=== PATIENT | female | born 1955 | race Caucasian/White ===

== ENCOUNTER 2017-03-03 17:04 | Inpatient (IN) | payer MEDICARE, OTHER ==
[~2017-03-03] VITALS: Ht 165.1 cm; Wt 89.4 kg
[2017-03-03] MEDS ORDERED: METFORMIN HCL PO (17:18)
[2017-03-03] MEDS ORDERED: LORAZEPAM PO (17:18)
[2017-03-03] MEDS ORDERED: QUET25TA3 PO (17:43)
[2017-03-03] MEDS ORDERED: MAGNESIUM HYDROXIDE 30 ML LIQUID UDC PO PRN (18:00)
[2017-03-03 18:31] VITALS: BP 127/87
[2017-03-03 20:13] VITALS: BP 134/77
[2017-03-03] MEDS: MAG HYDROX/AL HYDROX/SIMETH 30 ML LIQUID UDC PO PRN (20:30)
[2017-03-03] MEDS: ACETAMINOPHEN 325 MG TABLET PO PRN ×2 (20:32→20:47)
[2017-03-03] MEDS: LORAZEPAM 0.5 MG TABLET PO PRN ×2 (20:33→20:46)
[2017-03-03] MEDS: NICOTINE 14 MG/24HR PATCH TD SCH (21:02)
[2017-03-03] MEDS ORDERED: NICOTINE 14 MG/24HR PATCH TD ONE (21:10)
[2017-03-03] MEDS: QUETIAPINE FUMARATE 200 MG TABLET PO SCH (22:10)
[2017-03-03] MEDS ORDERED: QUETIAPINE FUMARATE 200 MG TABLET ONE (22:15)
[2017-03-04 07:30] VITALS: BP 115/77
[2017-03-04] MEDS: NICOTINE 14 MG/24HR PATCH TD SCH (09:21)
[2017-03-04] MEDS: ACETAMINOPHEN 325 MG TABLET PO PRN (10:52)
[2017-03-04] MEDS: MAG HYDROX/AL HYDROX/SIMETH 30 ML LIQUID UDC PO PRN (12:41)
[2017-03-04] MEDS: LORAZEPAM 0.5 MG TABLET PO PRN (16:04)
[2017-03-04 16:50] VITALS: BP 114/76
[2017-03-04] MEDS: CARBAMAZEPINE 200 MG TABLET PO SCH (19:14)
[2017-03-04] MEDS ORDERED: DEXTROSE 50% 50 ML DISP.SYRIN IV PRN (19:15)
[2017-03-04] MEDS ORDERED: INSULIN REGULAR, HUMAN 300 UNIT/3 ML VIAL SQ PRN (19:15)
[2017-03-04] MEDS: BLOOD SUGAR DIAGNOSTIC 1 EACH STRIP VI SCH (20:15)
[2017-03-04] MEDS: QUETIAPINE FUMARATE 200 MG TABLET PO SCH (20:16)
[2017-03-04 20:55] VITALS: BP 115/70
[2017-03-05] MEDS: ACETAMINOPHEN 325 MG TABLET PO PRN (01:55)
[2017-03-05] MEDS: LORAZEPAM 0.5 MG TABLET PO PRN (01:56)
[2017-03-05] MEDS: BLOOD SUGAR DIAGNOSTIC 1 EACH STRIP VI SCH ×4 (06:34→20:10)
[2017-03-05 07:30] VITALS: BP 102/75
[2017-03-05] MEDS: NICOTINE 14 MG/24HR PATCH TD SCH (09:13)
[2017-03-05] MEDS: METFORMIN HCL 500 MG TABLET PO SCH ×2 (09:13→17:52)
[2017-03-05] MEDS: CARBAMAZEPINE 200 MG TABLET PO SCH ×3 (09:13→17:52)
[2017-03-05 12:51] LABS: BASOPHILS % (AUTO) 0.6 % (0.0-2.0); EOSINOPHILS # (AUTO) 0.1 K/uL (0.0-0.7); EOSINOPHILS % (AUTO) 1.6 % (0.0-7.0); HEMATOCRIT 35.3 % (31.2-41.9); HEMOGLOBIN 11.6 g/dL (10.9-14.3); LYMPHOCYTES # (AUTO) 1.6 K/uL (20.0-40.0); MEAN CORPUSCULAR HEMOGLOBIN 25.6 uug (24.7-32.8); MEAN CORPUSCULAR HGB CONC 33 g/dL (32.3-35.6); MONOCYTES # (AUTO) 0.3 K/uL (2.0-10.0); MONOCYTES % (AUTO) 8.1 % (0.0-11.0); NEUTROPHILS # (AUTO) 1.5 K/uL (1.8-8.9); NEUTROPHILS % (AUTO) 42.7 % (38.5-71.5); PLATELET COUNT (AUTO) 247 K/uL (179-408); RED BLOOD CELL COUNT(AUTO) 4.52 MIL/uL (3.63-4.92); WHITE BLOOD COUNT (AUTO) 3.5 K/uL (3.8-11.8)
[2017-03-05 13:21] LABS: BILIRUBIN,TOTAL 0.2 mg/dL (0.2-1.0); CREATININE 0.8 mg/dL (0.6-1.3); PHOSPHOROUS 3.6 mg/dL (2.5-4.9); POTASSIUM 3.9 mmol/L (3.5-5.1); TOTAL PROTEIN, SERUM 7.8 g/dL (6.4-8.2)
[2017-03-05 13:32] LABS: THYROID STIMULATING HORMONE 0.654 mIU/mL (0.358-3.740)
[2017-03-05 16:31] VITALS: BP 117/79
[2017-03-05 20:07] VITALS: BP 127/80
[2017-03-05] MEDS: QUETIAPINE FUMARATE 200 MG TABLET PO SCH (20:09)
[2017-03-06] MEDS: BLOOD SUGAR DIAGNOSTIC 1 EACH STRIP VI SCH ×2 (06:25→11:57)
[2017-03-06 08:00] VITALS: BP 112/81
[2017-03-06] MEDS: METFORMIN HCL 500 MG TABLET PO SCH ×2 (08:27→17:15)
[2017-03-06] MEDS: CARBAMAZEPINE 200 MG TABLET PO SCH ×3 (08:27→17:15)
[2017-03-06] MEDS: NICOTINE 14 MG/24HR PATCH TD SCH (08:27)
[2017-03-06 10:12] LABS: BILIRUBIN,TOTAL 0.2 mg/dL (0.2-1.0); CREATININE 0.8 mg/dL (0.6-1.3); MAGNESIUM 1.8 mg/dL (1.8-2.4); PHOSPHOROUS 3.5 mg/dL (2.5-4.9); POTASSIUM 4.1 mmol/L (3.5-5.1); TOTAL PROTEIN, SERUM 7.7 g/dL (6.4-8.2)
[2017-03-06 10:21] LABS: BASOPHILS % (AUTO) 0.6 % (0.0-2.0); EOSINOPHILS # (AUTO) 0.1 K/uL (0.0-0.7); EOSINOPHILS % (AUTO) 1.6 % (0.0-7.0); HEMATOCRIT 36.5 % (31.2-41.9); HEMOGLOBIN 11.9 g/dL (10.9-14.3); LYMPHOCYTES # (AUTO) 2.4 K/uL (20.0-40.0); LYMPHOCYTES % (AUTO) 57.6 % (20.5-51.5); MEAN CORPUSCULAR HEMOGLOBIN 25.8 uug (24.7-32.8); MEAN CORPUSCULAR HGB CONC 33 g/dL (32.3-35.6); MEAN CORPUSCULAR VOLUME 78.8 fL (75.5-95.3); MONOCYTES # (AUTO) 0.3 K/uL (2.0-10.0); MONOCYTES % (AUTO) 7.5 % (0.0-11.0); NEUTROPHILS # (AUTO) 1.4 K/uL (1.8-8.9); NEUTROPHILS % (AUTO) 32.7 % (38.5-71.5); PLATELET COUNT (AUTO) 259 K/uL (179-408); RED BLOOD CELL COUNT(AUTO) 4.62 MIL/uL (3.63-4.92); WHITE BLOOD COUNT (AUTO) 4.2 K/uL (3.8-11.8)
[2017-03-06 12:22] LABS: THYROID STIMULATING HORMONE 0.85 mIU/mL (0.358-3.740)
[2017-03-06] MEDS ORDERED: BISACODYL 5 MG TABLET.DR PO PRN (14:30)
[2017-03-06] MEDS ORDERED: BISACODYL 5 MG TABLET.DR PO ONE (14:30)
[2017-03-06] MEDS: DOCUSATE SODIUM 100 MG CAPSULE PO SCH ×2 (15:54→20:23)
[2017-03-06 16:00] VITALS: BP 143/89
[2017-03-06] MEDS: ATORVASTATIN 10 MG TABLET PO SCH (20:23)
[2017-03-06] MEDS: QUETIAPINE FUMARATE 200 MG TABLET PO SCH (20:23)
[2017-03-06 20:27] VITALS: BP 126/83
[2017-03-06 22:42] LABS: *OCCULT BLOOD STOOL NEGATIVE (NEGATIVE)
[2017-03-07] MEDS: diphenhydrAMINE/ZINC ACET CREAM 28 GM TUBE TOP PRN (00:17)
[2017-03-07] MEDS: BLOOD SUGAR DIAGNOSTIC 1 EACH STRIP VI SCH (05:21)
[2017-03-07] MEDS: ACETAMINOPHEN 325 MG TABLET PO PRN (05:21)
[2017-03-07 07:30] VITALS: BP 124/78
[2017-03-07] MEDS: LORAZEPAM 0.5 MG TABLET PO PRN ×2 (08:19→15:38)
[2017-03-07] MEDS: METFORMIN HCL 500 MG TABLET PO SCH ×2 (08:19→17:05)
[2017-03-07] MEDS: CARBAMAZEPINE 200 MG TABLET PO SCH ×3 (08:19→17:00)
[2017-03-07] MEDS: DOCUSATE SODIUM 100 MG CAPSULE PO SCH ×2 (08:19→20:28)
[2017-03-07] MEDS: NICOTINE 14 MG/24HR PATCH TD SCH (08:20)
[2017-03-07 15:00] VITALS: BP 134/78
[2017-03-07] MEDS: MAG HYDROX/AL HYDROX/SIMETH 30 ML LIQUID UDC PO PRN (15:38)
[2017-03-07] MEDS: QUETIAPINE FUMARATE 200 MG TABLET PO SCH (20:28)
[2017-03-07] MEDS: ATORVASTATIN 10 MG TABLET PO SCH (20:28)
[2017-03-07 21:14] VITALS: BP 160/95
[2017-03-07 22:00] VITALS: BP 148/88
[2017-03-08] MEDS: BLOOD SUGAR DIAGNOSTIC 1 EACH STRIP VI SCH (06:25)
[2017-03-08 07:30] VITALS: BP 118/88
[2017-03-08] MEDS: METFORMIN HCL 500 MG TABLET PO SCH ×2 (08:38→17:38)
[2017-03-08] MEDS: DOCUSATE SODIUM 100 MG CAPSULE PO SCH ×2 (08:38→20:38)
[2017-03-08] MEDS: NICOTINE 14 MG/24HR PATCH TD SCH (08:38)
[2017-03-08] MEDS: LORAZEPAM 0.5 MG TABLET PO PRN (11:07)
[2017-03-08] MEDS: ACETAMINOPHEN 325 MG TABLET PO PRN (12:24)
[2017-03-08] MEDS: MAG HYDROX/AL HYDROX/SIMETH 30 ML LIQUID UDC PO PRN ×2 (15:04→17:09)
[2017-03-08] MEDS: QUETIAPINE FUMARATE 200 MG TABLET PO SCH (20:37)
[2017-03-08] MEDS: CARBAMAZEPINE 200 MG TABLET PO SCH (20:38)
[2017-03-08] MEDS: ATORVASTATIN 10 MG TABLET PO SCH (20:38)
[2017-03-08 20:42] VITALS: BP 129/83
[2017-03-08] MEDS: TEMAZEPAM 7.5 MG CAPSULE PO PRN (23:51)
[2017-03-09] MEDS: MAG HYDROX/AL HYDROX/SIMETH 30 ML LIQUID UDC PO PRN ×2 (03:10→16:04)
[2017-03-09] MEDS: ACETAMINOPHEN 325 MG TABLET PO PRN ×2 (05:33→11:25)
[2017-03-09] MEDS: BLOOD SUGAR DIAGNOSTIC 1 EACH STRIP VI SCH (06:09)
[2017-03-09 07:30] VITALS: BP 108/79
[2017-03-09] MEDS: NICOTINE 14 MG/24HR PATCH TD SCH (08:10)
[2017-03-09] MEDS: CARBAMAZEPINE 200 MG TABLET PO SCH ×2 (08:10→20:28)
[2017-03-09] MEDS: METFORMIN HCL 500 MG TABLET PO SCH ×2 (08:10→17:01)
[2017-03-09] MEDS: DOCUSATE SODIUM 100 MG CAPSULE PO SCH ×2 (08:10→20:27)
[2017-03-09] MEDS: LORAZEPAM 0.5 MG TABLET PO PRN ×2 (10:49→16:00)
[2017-03-09 16:46] VITALS: BP 115/80
[2017-03-09 20:20] VITALS: BP 124/74
[2017-03-09] MEDS: QUETIAPINE FUMARATE 200 MG TABLET PO SCH (20:27)
[2017-03-09] MEDS: ATORVASTATIN 10 MG TABLET PO SCH (20:28)
[2017-03-09] MEDS ORDERED: LOPERAMIDE HCL 2 MG CAPSULE PO PRN (20:30)
[2017-03-09] MEDS: diphenhydrAMINE/ZINC ACET CREAM 28 GM TUBE TOP PRN (20:34)
[2017-03-09] MEDS ORDERED: LOPERAMIDE HCL 2 MG CAPSULE ONE (20:50)
[2017-03-10] MEDS: TEMAZEPAM 7.5 MG CAPSULE PO PRN ×2 (00:35→23:40)
[2017-03-10] MEDS: BLOOD SUGAR DIAGNOSTIC 1 EACH STRIP VI SCH (06:23)
[2017-03-10 07:30] VITALS: BP 121/76
[2017-03-10 07:36] LABS: BASOPHILS % (AUTO) 0.6 % (0.0-2.0); EOSINOPHILS # (AUTO) 0.1 K/uL (0.0-0.7); EOSINOPHILS % (AUTO) 1.5 % (0.0-7.0); HEMOGLOBIN 12.4 g/dL (10.9-14.3); LYMPHOCYTES # (AUTO) 2.8 K/uL (20.0-40.0); LYMPHOCYTES % (AUTO) 55.8 % (20.5-51.5); MEAN CORPUSCULAR HEMOGLOBIN 25.7 uug (24.7-32.8); MEAN CORPUSCULAR HGB CONC 33 g/dL (32.3-35.6); MEAN CORPUSCULAR VOLUME 78.7 fL (75.5-95.3); MONOCYTES # (AUTO) 0.4 K/uL (2.0-10.0); MONOCYTES % (AUTO) 8.3 % (0.0-11.0); NEUTROPHILS # (AUTO) 1.7 K/uL (1.8-8.9); NEUTROPHILS % (AUTO) 33.8 % (38.5-71.5); PLATELET COUNT (AUTO) 267 K/uL (179-408); RED BLOOD CELL COUNT(AUTO) 4.82 MIL/uL (3.63-4.92)
[2017-03-10 08:05] LABS: BILIRUBIN,TOTAL 0.1 mg/dL (0.2-1.0); CREATININE 0.7 mg/dL (0.6-1.3); MAGNESIUM 1.7 mg/dL (1.8-2.4); PHOSPHOROUS 4.5 mg/dL (2.5-4.9); POTASSIUM 4.4 mmol/L (3.5-5.1); TOTAL PROTEIN, SERUM 7.7 g/dL (6.4-8.2)
[2017-03-10] MEDS: CARBAMAZEPINE 200 MG TABLET PO SCH ×2 (08:18→20:49)
[2017-03-10] MEDS: METFORMIN HCL 500 MG TABLET PO SCH ×2 (08:18→17:17)
[2017-03-10] MEDS: DOCUSATE SODIUM 100 MG CAPSULE PO SCH ×2 (08:18→21:00)
[2017-03-10] MEDS: NICOTINE 14 MG/24HR PATCH TD SCH (08:18)
[2017-03-10] MEDS: ACETAMINOPHEN 325 MG TABLET PO PRN (08:37)
[2017-03-10] MEDS: LORAZEPAM 0.5 MG TABLET PO PRN (12:06)
[2017-03-10] MEDS ORDERED: MAGNESIUM OXIDE 400 MG TABLET PO ONE (14:00)
[2017-03-10 16:13] VITALS: BP 120/86
[2017-03-10 20:00] VITALS: BP 138/87
[2017-03-10] MEDS: ATORVASTATIN 10 MG TABLET PO SCH (20:49)
[2017-03-10] MEDS: QUETIAPINE FUMARATE 200 MG TABLET PO SCH (20:49)
[2017-03-11] MEDS: BLOOD SUGAR DIAGNOSTIC 1 EACH STRIP VI SCH (06:41)
[2017-03-11 07:30] VITALS: BP 123/78
[2017-03-11] MEDS: METFORMIN HCL 500 MG TABLET PO SCH ×2 (08:17→17:01)
[2017-03-11] MEDS: CARBAMAZEPINE 200 MG TABLET PO SCH ×2 (08:17→20:31)
[2017-03-11] MEDS: DOCUSATE SODIUM 100 MG CAPSULE PO SCH (08:18)
[2017-03-11] MEDS: NICOTINE 14 MG/24HR PATCH TD SCH (08:18)
[2017-03-11] MEDS: ACETAMINOPHEN 325 MG TABLET PO PRN (08:18)
[2017-03-11] MEDS: LORAZEPAM 0.5 MG TABLET PO PRN (11:55)
[2017-03-11] MEDS: MAG HYDROX/AL HYDROX/SIMETH 30 ML LIQUID UDC PO PRN (15:00)
[2017-03-11 16:58] VITALS: BP 122/79
[2017-03-11] MEDS: ATORVASTATIN 10 MG TABLET PO SCH (20:31)
[2017-03-11] MEDS: QUETIAPINE FUMARATE 200 MG TABLET PO SCH (20:31)
[2017-03-11] MEDS ORDERED: CARBAMAZEPINE 200 MG TABLET ONE (20:56)
[2017-03-12] MEDS: MAG HYDROX/AL HYDROX/SIMETH 30 ML LIQUID UDC PO PRN ×3 (01:40→18:15)
[2017-03-12] MEDS: TEMAZEPAM 7.5 MG CAPSULE PO PRN (01:55)
[2017-03-12 07:30] VITALS: BP 113/80
[2017-03-12] MEDS: BENZTROPINE MESYLATE 1 MG TABLET PO SCH ×2 (08:45→17:37)
[2017-03-12] MEDS: NICOTINE 14 MG/24HR PATCH TD SCH (08:45)
[2017-03-12] MEDS: CARBAMAZEPINE 200 MG TABLET PO SCH ×3 (08:45→17:37)
[2017-03-12] MEDS: METFORMIN HCL 500 MG TABLET PO SCH ×2 (08:45→17:36)
[2017-03-12] MEDS ORDERED: BENZTROPINE MESYLATE 0.5 MG TABLET PO SCH (09:00)
[2017-03-12 13:00] VITALS: BP 127/83
[2017-03-12] MEDS: ATORVASTATIN 10 MG TABLET PO SCH (20:45)
[2017-03-12] MEDS: QUETIAPINE FUMARATE 200 MG TABLET PO SCH (20:45)
[2017-03-12 20:53] VITALS: BP 114/72
[2017-03-13] MEDS: TEMAZEPAM 7.5 MG CAPSULE PO PRN (00:40)
[2017-03-13 08:00] VITALS: BP 137/92
[2017-03-13] MEDS: METFORMIN HCL 500 MG TABLET PO SCH ×2 (08:23→17:11)
[2017-03-13] MEDS: CARBAMAZEPINE 200 MG TABLET PO SCH ×3 (08:23→16:34)
[2017-03-13] MEDS: NICOTINE 14 MG/24HR PATCH TD SCH (08:24)
[2017-03-13] MEDS: BENZTROPINE MESYLATE 1 MG TABLET PO SCH ×2 (08:24→16:34)
[2017-03-13 16:00] VITALS: BP 133/85
[2017-03-13] MEDS: ACETAMINOPHEN 325 MG TABLET PO PRN (16:34)
[2017-03-13] MEDS: LORAZEPAM 0.5 MG TABLET PO PRN (16:41)
[2017-03-13 20:18] VITALS: BP 124/80
[2017-03-13] MEDS: ATORVASTATIN 10 MG TABLET PO SCH (20:34)
[2017-03-13] MEDS: QUETIAPINE FUMARATE 200 MG TABLET PO SCH (20:35)
[2017-03-13] MEDS ORDERED: diphenhydrAMINE 25 MG/10 ML UDC NG PRN (22:00)
[2017-03-14 07:30] VITALS: BP 109/61
[2017-03-14] MEDS: METFORMIN HCL 500 MG TABLET PO SCH ×2 (08:42→17:02)
[2017-03-14] MEDS: BENZTROPINE MESYLATE 1 MG TABLET PO SCH ×2 (08:42→16:35)
[2017-03-14] MEDS: CARBAMAZEPINE 200 MG TABLET PO SCH ×3 (08:43→16:35)
[2017-03-14] MEDS: NICOTINE 14 MG/24HR PATCH TD SCH (08:43)
[2017-03-14] MEDS: LISINOPRIL 5 MG TABLET PO SCH (08:44)
[2017-03-14] MEDS: diphenhydrAMINE/ZINC ACET CREAM 28 GM TUBE TOP PRN (09:11)
[2017-03-14 15:00] VITALS: BP 114/82
[2017-03-14] MEDS: LORAZEPAM 0.5 MG TABLET PO PRN (15:51)
[2017-03-14 20:00] VITALS: BP 116/73
[2017-03-14] MEDS: QUETIAPINE FUMARATE 200 MG TABLET PO SCH (20:34)
[2017-03-14] MEDS: ATORVASTATIN 10 MG TABLET PO SCH (20:34)
[2017-03-15] MEDS: TEMAZEPAM 7.5 MG CAPSULE PO PRN (00:43)
[2017-03-15] MEDS: MAG HYDROX/AL HYDROX/SIMETH 30 ML LIQUID UDC PO PRN (04:10)
[2017-03-15] MEDS: METFORMIN HCL 500 MG TABLET PO SCH (08:11)
[2017-03-15 08:12] VITALS: BP 133/79
[2017-03-15] MEDS: LISINOPRIL 5 MG TABLET PO SCH (08:12)
[2017-03-15] MEDS: BENZTROPINE MESYLATE 1 MG TABLET PO SCH (08:12)
[2017-03-15] MEDS: NICOTINE 14 MG/24HR PATCH TD SCH (08:12)
[2017-03-15] MEDS: CARBAMAZEPINE 200 MG TABLET PO SCH ×2 (08:12→11:38)
== END 2017-03-15 12:00 | disposition home or self-care (01) | DRG 885 ==
LOC: ER 17:09 → GPS 17:40
PROVIDERS: ADMIT Psychiatry & Neurology Psychiatry
DX: F31.2 Bipolar disorder, current episode manic severe with psychotic features (principal); E11.65 Type 2 diabetes mellitus with hyperglycemia; E11.40 Type 2 diabetes mellitus with diabetic neuropathy, unspecified; F03.90 Unspecified dementia, unspecified severity, without behavioral disturbance, psychotic disturbance, mood disturbance, and anxiety; Z87.828 Personal history of other (healed) physical injury and trauma; Z91.5 Personal history of self-harm; E66.9 Obesity, unspecified; Z68.32 Body mass index [BMI] 32.0-32.9, adult; Z59.0 Homelessness; F20.9 Schizophrenia, unspecified; K59.00 Constipation, unspecified; E88.09 Other disorders of plasma-protein metabolism, not elsewhere classified; Z87.891 Personal history of nicotine dependence; E83.42 Hypomagnesemia; E78.5 Hyperlipidemia, unspecified; D72.819 Decreased white blood cell count, unspecified
CPT/HCPCS: 36415; 83735; 84100; 84443; 85025; A4663; J1815

== ENCOUNTER 2017-09-26 04:39 | Inpatient (IN) | payer MEDICARE ==
[~2017-09-26] VITALS: Ht 165.1 cm; Wt 80.7 kg
[2017-09-26 04:30] VITALS: BP 141/75
[~2017-09-26 04:39] MED LIST: METFORMIN HCL PO
--- NOTE | 2017-09-26 04:45 | NUR ---
Received patient direct admit from [facility]. Patient came in on a voluntary hold Admit Dx of Depression, Geropsych overflow. Patient stable upon admission with no acute distress. Vital signs within range. Patient denies S.I. & has no active plan. Oriented patient to unit. Patient is A/Ox4 & able to make her needs known. Initial assessment completed. Periods of anxiousness upon arrival to unit. MD aware of patient arrival. Call light within reach. Will continue to monitor.
[2017-09-26] MEDS ORDERED: ACETAMINOPHEN 325 MG TABLET PO PRN (05:00)
[2017-09-26] MEDS ORDERED: TEMAZEPAM 7.5 MG CAPSULE PO PRN (05:00)
[2017-09-26] MEDS ORDERED: LORAZEPAM 0.5 MG TABLET PO PRN (05:00)
[2017-09-26] MEDS ORDERED: QUET200T PO (05:53)
[2017-09-26] MEDS ORDERED: METF500T6 PO (05:53)
[2017-09-26] MEDS ORDERED: FURO-152 PO (05:53)
[2017-09-26] MEDS ORDERED: TEMA30CA PO (05:55)
--- NOTE | 2017-09-26 07:00 | NUR ---
Patient leaving AMA after screaming & shouting in the nurses station. Code Richard was called Patient stating that she wants to smoke her cigarettes and if she does not get her cigarettes she will leave AMA. Explained rules of facility. Patient signed AMA. Will inform
[2017-09-26] MEDS ORDERED: NICOTINE 21 MG/24HR PATCH TD SCH (09:00)
== END 2017-09-26 07:10 | disposition left against medical advice (07) | DRG 885 ==
LOC: GPSOV 04:39
PROVIDERS: ADMIT Psychiatry & Neurology Psychosomatic Medicine; ATTEND Internal Medicine
DX: F32.3 Major depressive disorder, single episode, severe with psychotic features (principal); F17.200 Nicotine dependence, unspecified, uncomplicated; F41.9 Anxiety disorder, unspecified; E11.9 Type 2 diabetes mellitus without complications; Z79.84 Long term (current) use of oral hypoglycemic drugs; Z79.899 Other long term (current) drug therapy; J44.9 Chronic obstructive pulmonary disease, unspecified; I10 Essential (primary) hypertension
CPT/HCPCS: A4663